=== PATIENT | female | born 1990 | race Caucasian/White ===

== ENCOUNTER → 2018-02-01 | Outpatient (REF) | payer OTHER | LOC: M SFHCLERA 13:28 | PROVIDERS: ATTEND Physician Assistant | DX: J02.9 Acute pharyngitis, unspecified (principal) ==

== ENCOUNTER 2018-10-14 14:45 | Emergency (ER) | payer OTHER ==
[~2018-10-14] VITALS: Ht 170.2 cm; Wt 73.5 kg
[2018-10-14 15:18] LABS: BASO # 0.1 10^3/uL (0.0-0.2); BASO % 0.7 % (0.0-1.0); EOS # 0.4 10^3/uL (0.0-0.5); EOS % 5.8 % (0.0-3.0); HEMATOCRIT 37.7 % (36.0-47.0); HEMOGLOBIN 12.6 g/dl (12.0-15.5); LYMPH # 2.4 10^3/uL (1.5-5.0); LYMPH % 32.7 % (24.0-44.0); MEAN CORPUSCULAR HEMOGLOBIN 32.6 pg (27.0-33.0); MEAN CORPUSCULAR HGB CONC 33.4 g/dl (32.0-36.5); MEAN CORPUSCULAR VOLUME 97.7 fl (80.0-96.0); MONO # 0.6 10^3/uL (0.0-0.8); MONO % 7.8 % (0.0-5.0); NEUTROPHILS # 3.9 10^3/uL (1.5-8.5); NEUTROPHILS % 52.7 % (36.0-66.0); PLATELET COUNT, AUTOMATED 214 10^3/uL (150-450); RED BLOOD COUNT 3.86 10^6/uL (4.00-5.40); WHITE BLOOD COUNT 7.4 10^3/uL (4.0-10.0)
[2018-10-14 15:35] LABS: BLOOD UREA NITROGEN 12 MG/DL (7-18); CALCIUM LEVEL 8.9 MG/DL (8.5-10.1); CARBON DIOXIDE LEVEL 28 MEQ/L (21-32); CHLORIDE LEVEL 107 MEQ/L (98-107); CREATININE FOR GFR 0.98 MG/DL (0.55-1.30); GLOMERULAR FILTRATION RATE > 60.0 (>60); GLUCOSE, FASTING 84 MG/DL (70-100); POTASSIUM SERUM 3.8 MEQ/L (3.5-5.1); SODIUM LEVEL 141 MEQ/L (136-145)
[2018-10-14] MEDS ORDERED: PROP10TA56 PO (15:42)
[2018-10-14] MEDS ORDERED: BUPR150T3 PO (15:42)
[2018-10-14 15:57] LABS: HCG, SERUM QUANTITATIVE < 1.0 MIU/ML
[2018-10-14 16:32] LABS: CK-MB VALUE MASS < 1.0 NG/ML (<3.6); CPK CREATINE PHOSPHOKINASE 50 U/L (26-192); TROPONIN I < 0.02 NG/ML (< 0.10)
--- NOTE | 2018-10-14 17:20 | REP ---
CHEST: Two views. There is no evidence of acute infiltrate. No pleural effusion is seen. The heart is normal in size. The mediastinal silhouette is unremarkable. The visualized osseous structures are intact. IMPRESSION: No acute pulmonary disease. Electronically Signed by Aaron Daugherty MD 10/16/2018 09:54 A
[2018-10-14 18:17] VITALS: BP 127/81
--- NOTE | 2018-10-15 07:15 | ECGEPIP ---
[facility] - ED Test Date: 2018-10-14 Pat Name: MANOJ NEFF Department: Room: - Gender: Female [employer]: : 1990 Requested By: NIK Pepper PA-C Order Number: [id number] Reading MD: Lavon Emanuel Measurements Intervals [place] Rate: 59 P: 27 DC: 147 QRS: 76 QRSD: 92 T: 53 QT: 381 QTc: 379 Interpretive Statements SINUS BRADYCARDIA WITH SINUS ARRHYTHMIA BENIGN EARLY REPOLARIZATION NO PRIORS FOR COMPARISON Electronically Signed on 10-15-2018 7:14:47 EDT by Lavon Emanuel
--- NOTE | 2018-10-15 08:28 | REP ---
PELVIC ULTRASOUND: Real-time sonographic evaluation of pelvis performed utilizing transabdominal and endovaginal technique. Bladder measures 7.0 x 4.7 x 9.0 cm. Uterus measures 8.6 x 4.4 x 5.6 cm. Endometrial thickness is 4 mm. There is no endometrial fluid collection. Ovaries are normal in size and echotexture, right ovary measuring 3.8 x 1.4 x 2.4 cm, and left ovary 4.1 x 1.6 x 2.1 cm. There is no adnexal mass or free fluid. No torsion is seen of either ovary. IMPRESSION: Essentially negative pelvic ultrasound. Electronically Signed by Aaron Daugherty MD 10/16/2018 10:46 A
== END 2018-10-14 19:13 | disposition home or self-care (01) ==
LOC: M ED 14:45
DX: N93.9 Abnormal uterine and vaginal bleeding, unspecified (principal); F41.9 Anxiety disorder, unspecified; F32.9 Major depressive disorder, single episode, unspecified; Z79.899 Other long term (current) drug therapy; Z88.0 Allergy status to penicillin; Z91.040 Latex allergy status

== ENCOUNTER → 2019-03-31 | Outpatient (CLI) | payer OTHER ==
[~2019-03-31] MED LIST: BUPR150T3 PO; PROP10TA56 PO
--- NOTE | 2019-03-31 17:34 | REP ---
KUB: Two views. History: Abdomen pain. Findings: Bowel gas pattern is normal. Flank stripes and psoas margins are intact. No mass, organomegaly or pathologic calcification is seen. Impression: Negative KUB. Electronically Signed by Maximo Almonte MD 03/31/2019 05:25 P
== END ==
LOC: M LRY 17:05
PROVIDERS: ATTEND Internal Medicine
DX: R10.31 Right lower quadrant pain (principal)
CPT/HCPCS: 74018; 81002; 96372; G0463; J1885

== ENCOUNTER 2019-04-02 12:04 | Emergency (ER) | payer OTHER ==
[~2019-04-02] VITALS: Ht 170.2 cm; Wt 77.0 kg
[2019-04-02 13:06] LABS: BASO # 0.1 10^3/uL (0.0-0.2); BASO % 0.6 % (0.0-1.0); EOS # 0.2 10^3/uL (0.0-0.5); EOS % 3.1 % (0.0-3.0); HEMOGLOBIN 14.5 g/dl (12.0-15.5); LYMPH % 25.1 % (24.0-44.0); MEAN CORPUSCULAR HEMOGLOBIN 31.5 pg (27.0-33.0); MEAN CORPUSCULAR HGB CONC 33.7 g/dl (32.0-36.5); MEAN CORPUSCULAR VOLUME 93.5 fl (80.0-96.0); MONO # 0.5 10^3/uL (0.0-0.8); MONO % 6.1 % (0.0-5.0); NEUTROPHILS # 5.1 10^3/uL (1.5-8.5); NEUTROPHILS % 64.8 % (36.0-66.0); PLATELET COUNT, AUTOMATED 209 10^3/uL (150-450); WHITE BLOOD COUNT 7.8 10^3/uL (4.0-10.0)
[2019-04-02] MEDS ORDERED: ONDANSETRON 4MG/2ML VIAL (J2405) IV ONE (13:15)
[2019-04-02] MEDS ORDERED: KETOROLAC 30 MG/ML VIAL (J1885) IV ONE (13:15)
[2019-04-02] MEDS ORDERED: NS 1,000 ML IV ONE (13:15)
[2019-04-02 13:34] LABS: ALBUMIN 4.3 GM/DL (3.2-5.2); ALT/SGPT 15 U/L (12-78); BILIRUBIN,DIRECT 0.2 MG/DL (0.0-0.2); BILIRUBIN,TOTAL 0.6 MG/DL (0.2-1.0); HCG, SERUM QUALITATIVE NEGATIVE (NEGATIVE); LIPASE 98 U/L (73-393); TOTAL PROTEIN 7.4 GM/DL (6.4-8.2)
[2019-04-02] MEDS ORDERED: ISOVUE-370 76% 100ML VIAL (Q9967) As Ordered ONE (13:57)
--- NOTE | 2019-04-02 15:05 | REP ---
CT ABDOMEN AND PELVIS WITH IV CONTRAST: TECHNIQUE: Axial contrast enhanced images from the lung bases to the pubic symphysis using 100 mL Isovue 370 intravenous contrast material with multiplanar reformations. Visualized lung bases are clear. Liver, spleen, adrenals, pancreas and kidneys are unremarkable. There is no hydronephrosis. There is no abdominal aortic aneurysm. There is no adenopathy. There is no free air. A tiny amount of fluid in the cul-de-sac is likely physiologic. I see no bowel wall thickening. The appendix is normal. There is no pelvis mass. Urinary bladder is mildly distended and grossly unremarkable. IMPRESSION: Tiny amount of fluid in the cul-de-sac is likely physiologic. No acute abnormalities are seen. Appendix is normal. Electronically Signed by Aaron Daugherty MD 04/02/2019 03:29 P
[2019-04-02 15:12] VITALS: BP 107/60
== END 2019-04-02 15:12 | disposition home or self-care (01) ==
LOC: M ED 12:04
DX: R10.9 Unspecified abdominal pain (principal); R51 Headache; R11.0 Nausea; F33.9 Major depressive disorder, recurrent, unspecified; F41.9 Anxiety disorder, unspecified; Z88.0 Allergy status to penicillin; F17.210 Nicotine dependence, cigarettes, uncomplicated
CPT/HCPCS: 74177; 80047; 80076; 81001; 83690; 84703; 85025; 96361; 96374; 96375; 99284; J1885; J2405; Q9967

== ENCOUNTER 2019-11-24 11:13 | Emergency (ER) | payer OTHER ==
[~2019-11-24] VITALS: Ht 170.2 cm; Wt 77.4 kg
[2019-11-24 13:06] LABS: MONO SCRN NEGATIVE (NEGATIVE)
[2019-11-24] MEDS ORDERED: CLEO300C2 PO (13:30)
[2019-11-24] MEDS ORDERED: FLON1SPR NARES (13:30)
[2019-11-24 13:40] VITALS: BP 134/82
== END 2019-11-24 13:54 | disposition home or self-care (01) ==
LOC: M ED 11:13
DX: J02.0 Streptococcal pharyngitis (principal); H65.03 Acute serous otitis media, bilateral; Z20.828 Contact with and (suspected) exposure to other viral communicable diseases; F41.9 Anxiety disorder, unspecified; F32.9 Major depressive disorder, single episode, unspecified; Z88.0 Allergy status to penicillin; Z91.040 Latex allergy status